=== PATIENT | born 1990 | race Caucasian/White ===

== ENCOUNTER → 2025-07-26 09:12 | Outpatient (CLI) | payer MEDICARE, MEDICAID, SELFPAY ==
[2025-07-26 10:29] LABS: Add Manual Diff / Slide Review NO; Hematocrit 40.8 %; Hemoglobin 14.0 g/dL; Lymphocytes Absolute Auto 1400 /uL; Mean Corpuscular HGB Conc 34.4 %; Mean Corpuscular Hemoglobin 31.1 PG; Mean Corpuscular Volume 90.6 fL; Platelet Count 214 X10^3/uL
[2025-07-26 11:00] LABS: Alanine Aminotransferase 12 IU/L; Albumin 4.4 g/dL; Albumin Globulin Ratio 1.9; Alkaline Phosphatase 61 U/L; Blood Urea Nitrogen 12 mg/dL; Calcium 8.9 mg/dL; Carbon Dioxide 27 mmol/L; Chloride 105 mmol/L; Cholesterol 135 mg/dL; Estimated Glomerular Filt Rate 0 mL/min; Globulin 2.3 g/dL; Glucose 99 mg/dL; HDL Cholesterol 49 mg/dL; HEMOLYSIS < 15; Potassium 3.9 mmol/L; Sodium 138 mmol/L; Total Protein 6.7 g/dL; Triglycerides 37 mg/dL
[2025-07-26 11:15] LABS: Vitamin D 25 Hydroxy (D3) 63.9 ng/mL
[2025-07-26 11:16] LABS: Free T4, Direct Thyroxine 0.91 ng/dL
[2025-07-26 11:33] LABS: Estradiol, Total 34.4 pg/mL
[2025-07-26 11:35] LABS: Ferritin 22 ng/mL
[2025-07-26 12:06] LABS: Folate 10.7 ng/mL; Vitamin B12 911 pg/mL
[2025-07-26 17:00] LABS: Thyroid Stimulating Hormone 2.07 uIU/mL
[2025-07-26 19:01] LABS: Hemoglobin A1C% w Est Avg Glu 4.9 %
== END ==
PROVIDERS: PCP Family Medicine; Referring Provider Family Medicine; Visit Provider Family Medicine
DX: Z13.1 Encounter for screening for diabetes mellitus (principal); E34.9 Endocrine disorder, unspecified; E55.9 Vitamin D deficiency, unspecified; I10 Essential (primary) hypertension
CPT/HCPCS: 36415; 80053; 80061; 82306; 82607; 82670; 82728; 82746; 83036; 84270; 84403; 84439; 84443; 85025